=== PATIENT | female | born 1975 | race Caucasian/White ===

== ENCOUNTER 2025-05-28 06:52 | Emergency (ER) | payer MEDICAID ==
[~2025-05-28] VITALS: Ht 165.1 cm; Wt 109.9 kg
[2025-05-28] MEDS ORDERED: MORPHINE SULFATE 4 MG/ML VIAL IV ONE (07:15)
[2025-05-28] MEDS ORDERED: SODIUM CHLORIDE 0.9% 1,000 ML IV ONE (07:15)
[2025-05-28 07:21] LABS: BASOPHILS 0.6 % (0.1-1.2); EOSINOPHILS 0.6 % (0.7-5.8); LYMPHOCYTES 14.8 % (19.3-51.7); MCH 30.9 PG (25.6-32.2); MCHC 35.1 g/dL (32.2-35.5); MCV 88.1 fL (79.4-94.8); MONOCYTES 4.2 % (4.7-12.5); NEUTROPHILS 79.6 % (34.0-71.1); RBC 4.72 M/uL (3.93-5.22)
[2025-05-28] MEDS ORDERED: MAGNESIUM SULFATE 2 GM/50 ML BAG IV ONE (07:30)
[2025-05-28] MEDS ORDERED: LORazepam 2 MG/ML VIAL IV ONE (07:30)
[2025-05-28 07:36] LABS: ALT (SGPT) 28.0 U/L (14-59); AST (SGOT) 19.0 U/L (15-37); GLOMERULAR FILTRATION RATE,EST 108.0 mL/min (>60); PROTEIN, TOTAL 7.8 g/dL (6.4-8.2); UREA NITROGEN 8.0 mg/dL (7-18)
[2025-05-28] MEDS ORDERED: METOPROLOL TART25 MG PO (08:04)
[2025-05-28 08:24] LABS: BLOOD/HGB, URINE NEGATIVE (Negative); KETONE, URINE NEGATIVE (Negative); LEUK ESTERASE, URINE NEGATIVE (negative); NITRITE, URINE NEGATIVE (negative)
[2025-05-28] MEDS ORDERED: ONDANSETRON ODT4 MG PO (09:48)
[2025-05-28 10:04] VITALS: BP 142/92
== END 2025-05-28 10:04 | disposition home or self-care (01) ==
LOC: ED 06:52
PROVIDERS: Emergency Medicine
DX: R11.10 Vomiting, unspecified (principal); Z79.899 Other long term (current) drug therapy; Z88.5 Allergy status to narcotic agent
CPT/HCPCS: 36415; 80053; 81003; 83690; 83735; 85025; 96361; 96374; 96375; 99284-25; J2060; J2270; J2405; J7030

== ENCOUNTER 2025-06-29 23:12 | Emergency (ER) | payer OTHER ==
[~2025-06-29] VITALS: Ht 165.1 cm; Wt 113.0 kg
[~2025-06-29 23:12] MED LIST: ATIVAN0.5 MG PO; ATIVAN2 MG PO; GABAPENTIN300 MG PO; METOPROLOL TART25 MG PO; NEURONTIN300 MG PO; ONDANSETRON ODT4 MG PO
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
[2025-06-29] MEDS ORDERED: HYDROXYZINE HCL10 MG PO (23:30)
[2025-06-30 00:15] VITALS: BP 98/70
[2025-06-30] MEDS ORDERED: HYDROmorphone HCL 1 MG/ML SYR IV PRN (00:15)
[2025-06-30 00:17] LABS: BASOPHILS 1.7 % (0.1-1.2); EOSINOPHILS 1.0 % (0.7-5.8); LYMPHOCYTES 44.8 % (19.3-51.7); MCH 31.9 PG (25.6-32.2); MCHC 33.9 g/dL (32.2-35.5); MCV 94.0 fL (79.4-94.8); MONOCYTES 10.5 % (4.7-12.5); NEUTROPHILS 41.7 % (34.0-71.1); RBC 4.17 M/uL (3.93-5.22)
[2025-06-30 00:27] LABS: ALT (SGPT) 26.0 U/L (14-59); GLOMERULAR FILTRATION RATE,EST 95.0 mL/min (>60); PROTEIN, TOTAL 7.0 g/dL (6.4-8.2); UREA NITROGEN 18.0 mg/dL (7-18)
[2025-06-30 00:56] LABS: AST (SGOT) 20.0 U/L (15-37)
[2025-06-30] MEDS ORDERED: HYDROCODON-ACE1 EA10 PO (02:21)
--- NOTE | 2025-06-30 14:07 | EKG ---
[facility] [address] [facility] [facility] [place] [address] Signed Normal sinus rhythm Right bundle branch block Abnormal ECG No previous ECGs available Confirmed by Brea Lane MD () on 06/30/2025 2:07:41 PM Electronically Signed By: BREA LANE MD 06/30/25 1407 PATIENT NAME: DEB RITTER Electrocardiogram DATE OF : 71 PHYSICIAN: BREA LANE MD REPORT #: [id number] REPORT IS CONFIDENTIAL AND NOT TO BE RELEASED WITHOUT AUTHORIZATION
== END 2025-06-30 02:30 | disposition home or self-care (01) ==
LOC: ED 23:12
PROVIDERS: Emergency Medicine
DX: S82.831A Other fracture of upper and lower end of right fibula, initial encounter for closed fracture (principal); T14.8XXA Other injury of unspecified body region, initial encounter; R51.9 Headache, unspecified; M54.2 Cervicalgia; M54.9 Dorsalgia, unspecified; M25.511 Pain in right shoulder; W10.9XXA Fall (on) (from) unspecified stairs and steps, initial encounter; I10 Essential (primary) hypertension; Z88.5 Allergy status to narcotic agent; Z79.899 Other long term (current) drug therapy
CPT/HCPCS: 36415; 70450; 71260; 72125; 73610; 74177; 80053; 85025; 93005; 93010; 96374; 96375; 96376; 99285-25; J1171; J2405; Q9967

== ENCOUNTER 2025-07-06 23:29 | Emergency (ER) | payer OTHER ==
[~2025-07-06] VITALS: Ht 165.1 cm; Wt 112.0 kg
[~2025-07-06 23:29] MED LIST changes: +HYDROCODON-ACE1 EA10 PO; +HYDROXYZINE HCL10 MG PO
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
[2025-07-06 23:41] LABS: BASOPHILS 0.8 % (0.1-1.2); EOSINOPHILS 0.5 % (0.7-5.8); LYMPHOCYTES 29.2 % (19.3-51.7); MCH 31.4 PG (25.6-32.2); MCHC 34.5 g/dL (32.2-35.5); MCV 90.8 fL (79.4-94.8); MONOCYTES 4.7 % (4.7-12.5); NEUTROPHILS 64.6 % (34.0-71.1); RBC 4.37 M/uL (3.93-5.22)
[2025-07-06] MEDS ORDERED: CHARCOAL/SORBITOL SOLUTION 50 GM/240 ML BTL PO ONE (23:45)
[2025-07-06 23:54] LABS: BLOOD/HGB, URINE SMALL (Negative); KETONE, URINE NEGATIVE (Negative); LEUK ESTERASE, URINE NEGATIVE (negative); NITRITE, URINE NEGATIVE (negative)
[2025-07-07 00:08] LABS: BACTERIA, URINE 2+ /hpf (negative); CASTS, URINE NONE SEEN \\lpf; CRYSTALS, URINE NONE SEEN (0-1+); EPITHELIAL CELLS, URINE SQUAMOUS 2+ /lpf (0-1+)
[2025-07-07 00:09] LABS: AMPHETAMINES, URINE NEGATIVE (NEGATIVE); BARBITURATES, URINE NEGATIVE (NEGATIVE); BENZODIAZEPINE, URINE NEGATIVE (NEGATIVE); CANNABINOID, URINE NEGATIVE (NEGATIVE); COCAINE, URINE NEGATIVE (NEGATIVE); ECSTASY, URINE NEGATIVE (NEGATIVE); FENTANYL, URINE NEGATIVE (NEGATIVE); METHADONE, URINE NEGATIVE (NEGATIVE); OPIATES, URINE NEGATIVE (NEGATIVE); OXYCODONE, URINE NEGATIVE (NEGATIVE); PHENCYCLIDINE, URINE NEGATIVE (NEGATIVE); REFLEX CULTURE, URINE No (No)
[2025-07-07 00:10] LABS: ALT (SGPT) 22 U/L (14-59); AST (SGOT) 32 U/L (15-37); GLOMERULAR FILTRATION RATE,EST 100 mL/min (>60); PROTEIN, TOTAL 6.8 g/dL (6.4-8.2); TSH, 3RD GENERATION 5.767 uIU/mL (0.358-3.740); UREA NITROGEN 21 mg/dL (7-18)
[2025-07-07 00:11] LABS: ALCOHOL, MEDICAL 304 ng/dL (<3)
[2025-07-07] MEDS ORDERED: LORazepam 2 MG/ML VIAL IV ONE (07:00)
--- NOTE | 2025-07-07 07:24 | EKG ---
[facility] [address] [facility] [place] [address] Signed Sinus tachycardia Right bundle branch block Abnormal ECG When compared with ECG of 29-JUN-2025 23:24, No significant change was found Confirmed by RACHID ROBISON MD ([id number]) on 07/07/2025 7:23:52 AM Electronically Signed By: RACHID ROBISON 07/07/25723 PATIENT NAME: STONEDEB DAWN Electrocardiogram DATE OF : 71 PHYSICIAN: RACHID ROBISON REPORT #: [id number] REPORT IS CONFIDENTIAL AND NOT TO BE RELEASED WITHOUT AUTHORIZATION
[2025-07-07] MEDS ORDERED: LORazepam 2 MG/ML VIAL IV/IM PRN (07:30)
[2025-07-07] MEDS ORDERED: THIAMINE HCL 100 MG TAB PO SCH (08:16)
[2025-07-07] MEDS ORDERED: MULTIVITAMINS THERAPEUTIC 1 EA TAB PO SCH (08:16)
[2025-07-07] MEDS ORDERED: FOLIC ACID 1 MG TAB PO SCH (08:16)
[2025-07-07] MEDS ORDERED: CHLORDIAZEPOXIDE 25 MG CAP PO ONE ×2 (12:00→16:30)
[2025-07-07] MEDS ORDERED: SODIUM CHLORIDE 0.9% 1,000 ML IV SCH (17:45)
[2025-07-07] MEDS ORDERED: METOPROLOL TARTRATE 50 MG TAB PO SCH (21:00)
[2025-07-08] MEDS ORDERED: SUCRALFATE 1 GM TAB PO ONE (01:15)
[2025-07-08] MEDS ORDERED: CHLORDIAZEPOXIDE 25 MG CAP PO SCH ×2 (01:15→09:00)
[2025-07-08] MEDS ORDERED: LORazepam 1 MG TAB PO PRN (07:15)
[2025-07-08] MEDS ORDERED: ACETAMINOPHEN 325 MG TAB PO PRN (07:15)
[2025-07-08] MEDS ORDERED: ONDANSETRON 4 MG TAB ODT SL PRN (07:15)
[2025-07-08] MEDS ORDERED: MULTIVITAMINS THERAPEUTIC 1 EA TAB PO SCH (08:00)
[2025-07-08] MEDS ORDERED: ONDANSETRON 4 MG TAB ODT SL ONE (11:00)
[2025-07-08 12:47] VITALS: BP 129/69
[2025-07-09] MEDS ORDERED: FOLIC ACID 1 MG TAB PO SCH (08:00)
[2025-07-09] MEDS ORDERED: THIAMINE HCL 100 MG TAB PO SCH (08:00)
== END 2025-07-08 12:47 | disposition home or self-care (01) ==
LOC: ED 23:29
PROVIDERS: Family Medicine
DX: T42.6X2A Poisoning by other antiepileptic and sedative-hypnotic drugs, intentional self-harm, initial encounter (principal); S82.892A Other fracture of left lower leg, initial encounter for closed fracture; I10 Essential (primary) hypertension; F10.10 Alcohol abuse, uncomplicated; X58.XXXA Exposure to other specified factors, initial encounter; Z79.899 Other long term (current) drug therapy; Z88.5 Allergy status to narcotic agent
CPT/HCPCS: 36415; 80053; 80307; 81001; 83735; 84443; 84703; 85025; 93005; 93010; 96374; 96375; 96376; 99285-25; A9270; A9270-GY; G0480; J2060; J2405; J7030

== ENCOUNTER 2025-07-13 05:55 | Emergency (ER) | payer OTHER ==
[~2025-07-13] VITALS: Ht 165.1 cm; Wt 112.0 kg
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
[2025-07-13] MEDS ORDERED: KETOROLAC TROMETHAMINE 60 MG/2 ML VIAL IM ONE (06:15)
[2025-07-13] MEDS ORDERED: CELEBREX200 MG PO (07:10)
[2025-07-13] MEDS ORDERED: PREDNISONE20 MG PO (07:10)
[2025-07-13] MEDS ORDERED: TRAMADOL HCL 50 MG TAB PO ONE (07:15)
[2025-07-13 07:28] VITALS: BP 104/67
== END 2025-07-13 07:30 | disposition home or self-care (01) ==
LOC: ED 05:55
DX: S82.61XA Displaced fracture of lateral malleolus of right fibula, initial encounter for closed fracture (principal); M72.2 Plantar fascial fibromatosis; I10 Essential (primary) hypertension; X58.XXXA Exposure to other specified factors, initial encounter; Z79.899 Other long term (current) drug therapy; Z88.5 Allergy status to narcotic agent
CPT/HCPCS: 36415; 73700; 85379; 96372; 99284-25; J1885